=== PATIENT | female | born 1995 | race Two or more races ===

== ENCOUNTER 2019-10-27 20:27 | Emergency (ER) | payer OTHER ==
[~2019-10-27] VITALS: Ht 162.6 cm; Wt 66.8 kg
[2019-10-27 20:31] VITALS: BP 143/77
--- NOTE | 2019-10-27 20:42 | NUR ---
THIS IS A 23Y F THAT COMES IN TONIGHT FOR A GLF AT WORK. PT SLIPPED ON THE WET FLOOR AND HIT HER HEAD, R SHOULDER/ ARM. DENIES LOC/ NO THINNERS. DENIES N/V. A/O X'S 4 NADN PA AT BEDSIDE FOR ASSESSMENT
== END 2019-10-27 23:11 | disposition home or self-care (01) ==
LOC: ED 22:00
DX: S16.1XXA Strain of muscle, fascia and tendon at neck level, initial encounter (principal); S00.93XA Contusion of unspecified part of head, initial encounter; G89.11 Acute pain due to trauma; M25.511 Pain in right shoulder; W01.0XXA Fall on same level from slipping, tripping and stumbling without subsequent striking against object, initial encounter; Y93.89 Activity, other specified; Y92.89 Other specified places as the place of occurrence of the external cause; Y99.8 Other external cause status
CPT/HCPCS: 70450; 72125; 99285